=== PATIENT | female | born 1950 | race Caucasian/White ===

== ENCOUNTER 2017-01-02 18:15 | Outpatient (CLI) | payer MEDICARE, MEDICAID ==
[2017-01-02 19:16] LABS: #Lymphocytes 2.1 thou/uL (1.20-3.40); #Monocytes 0.6 thou/uL (0.11-0.59); #Neutrophils 4.8 thou/uL (1.40-6.50); %Basophils 0.7 % (0.0-1.0); %Lymphocytes 27.5 % (21.0-51.0); %Monocytes 8.1 % (0.0-10.0); Mean Platelet Volume 5.9 fL (7.4-10.4); White Blood Cell (WBC) Count 7.6 thou/uL (4.8-10.8)
[2017-01-02 19:19] LABS: PTT 28.1 SEC (22.9-36.1); Prothrombin Time 13.2 SEC (12.0-14.7)
[2017-01-02 19:22] LABS: ALT (SGPT) 21 U/L (0-55); AST (SGOT) 20 U/L (5-34); Alkaline Phosphatase 92 U/L (40-150); Anion Gap 14 mmol/L (10-20); BUN (Urea Nitrogen) 17 mg/dL (9.8-20.1); Bilirubin, Direct 0.2 mg/dL (0.1-0.3); Bilirubin, Total 0.4 mg/dL (0.2-1.2); Calc. Creatinine Clearance 0 mL/min (70-130); Calcium 9.7 mg/dL (7.8-10.44); Carbon Dioxide 29 mmol/L (23-31); Chloride 99 mmol/L (98-107); Estimated GFR-MDRD 54; Protein, Total 7.5 g/dL (5.8-8.1)
== END 2017-01-02 18:16 | disposition home or self-care (01) ==
LOC: NAV LAB 18:15
PROVIDERS: ATTEND Internal Medicine
DX: C22.0 Liver cell carcinoma (principal)
CPT/HCPCS: 80048; 80076; 85025; 85610; 85730

== ENCOUNTER 2017-02-03 11:37 | Emergency (ER) | payer MEDICARE, MEDICAID ==
[~2017-02-03 11:37] MED LIST: Iopamidol 370 76% 100 ML VIAL ONE
[2017-02-03] MEDS ORDERED: Sodium Chloride 0.9% 0 ML ONE (12:18)
[2017-02-03] MEDS ORDERED: Sodium Chloride 0.9% 1,000 ML ONE (12:18)
[2017-02-03 12:34] LABS: #Lymphocytes 0.6 thou/uL (1.20-3.40); #Monocytes 0.4 thou/uL (0.11-0.59); #Neutrophils 13.3 thou/uL (1.40-6.50); %Basophils 0.2 % (0.0-1.0); %Lymphocytes 4.2 % (21.0-51.0); %Monocytes 2.7 % (0.0-10.0); %Neutrophils 92.9 % (42.0-75.0); Mean Corpuscular HGB CONC 32.3 g/dL (32.0-36.0); Mean Corpuscular Hemoglobin 26.6 pg (27.0-31.0); Mean Corpuscular Volume 82.4 fl (81.0-99.0); Mean Platelet Volume 5.3 fL (7.4-10.4); Platelet Count 473 thou/uL (130-400); RBC Distribution Width 13.1 % (11.5-14.5); Red Blood Cell (RBC) Count 5.27 mill/uL (4.20-5.40); White Blood Cell (WBC) Count 14.3 thou/uL (4.8-10.8)
[2017-02-03 13:01] LABS: ALT (SGPT) 73 U/L (0-55); AST (SGOT) 96 U/L (5-34); Albumin 3.8 g/dL (3.4-4.8); Alkaline Phosphatase 102 U/L (40-150); Anion Gap 22 mmol/L (10-20); BUN (Urea Nitrogen) 27 mg/dL (9.8-20.1); Bilirubin, Total 0.5 mg/dL (0.2-1.2); Calc. Creatinine Clearance 0 mL/min (70-130); Calcium 9.7 mg/dL (7.8-10.44); Carbon Dioxide 20 mmol/L (23-31); Chloride 99 mmol/L (98-107); Estimated GFR-MDRD 31; Globulin 3.7 g/dL (2.4-3.5); Glucose 197 mg/dL (80-115); Potassium 4.9 mmol/L (3.5-5.1); Protein, Total 7.5 g/dL (5.8-8.1); Sodium 136 mmol/L (136-145)
[2017-02-03 13:02] LABS: INR-International Normal Ratio 1.1; PTT 29.5 SEC (22.9-36.1)
[2017-02-03] MEDS ORDERED: cefTRIAXone\\ROCEPHIN 1 GM VIAL ONE (14:13)
[2017-02-03] MEDS ORDERED: Sodium Chloride 0.9% 100 ML ONE (14:13)
--- NOTE | 2017-02-03 16:07 | CT ---
CT OF ABDOMEN AND PELVIS PERFORMED WITH INTRAVENOUS CONTRAST ENHANCEMENT: Comparison: Most recent prior exam, 09-12-07. History: Abdominal pain, rectal bleeding since last night. History of a chemotherapy injection in liver performed in [facility]. FINDINGS: The lung bases are clear of infiltrates or pulmonary nodules. Small hiatal hernia is present. There is a hypertrophied appearance to the left lobe of the liver. Within the right lobe there is a well circumscribed low attenuation mass measuring 4.5 cm in size. It has air interspersed within i t. The lesion is somewhat hyperdense but not definitely a fluid density lesion. It may be related to patient's treatment. Mainly peripheral to this in a somewhat geographic distribution without obv ious disruption of the vascular structures is a hyperdense area occupying a large part of the right lobe of the liver. This is not typical appearance for a mass. It may be on the basis of the patien t's treatment. It could indicate ischemic areas of the liver. It would be very helpful to obtained the comparison examination wherever they are available. The spleen and pancreas regions are unrema rkable. The gallbladder is mildly distended. Right and left adrenal glands and right and left kidneys are normal in size. There is a large wide mouth ventral hernia present. No obstruction associated with this. No significant left periaortic adenopathy. There is a mildly enlarged aortocaval node that measures 12 mm in short axis dimension. There are some small portahepatis nodes present. CT OF PELVIS PERFORMED WITH CONTRAST ENHANCEMENT: No adenopathy, mass or free fluid. The colon is not distended. I do not see any signs of bowel wal l distention considering the under distention. There are arthritic changes of the spine. There are also marked arthritic changes of the right hip. IMPRESSION: 1. 4.5 cm hyperdense mass with internal air seen within the right lobe of the liver. This is centr al to a large area of hyperdensity within the right lobe which is in more a geographic type distribu tion. It is not a typical appearance for a mass. It does not appear to displace the vessels. I jose spect that this may represent areas of the liver which are showing hypoperfusion or ischemic or even possibly infarct, possibly related to this central mass. Air density within the mass could be on t he basis of whatever treatment the patient received. Obviously a developing abscess cannot be exclu ded given the presence of air. Correlation with the recent CT examination is recommended. 2. Small nodes in the portahepatis and pancreatic head and aortocaval regions which would be suspic ious for neoplastic involvement. 3. Large ventral hernia. 4. Small hiatal hernia. POS: MARIO
== END 2017-02-03 15:01 | disposition home or self-care (01) ==
LOC: NAV ERS 11:37
DX: K57.92 Diverticulitis of intestine, part unspecified, without perforation or abscess without bleeding (principal); K62.5 Hemorrhage of anus and rectum; C22.8 Malignant neoplasm of liver, primary, unspecified as to type; I10 Essential (primary) hypertension; J44.9 Chronic obstructive pulmonary disease, unspecified; E78.5 Hyperlipidemia, unspecified; F32.9 Major depressive disorder, single episode, unspecified; Z87.891 Personal history of nicotine dependence; Z79.891 Long term (current) use of opiate analgesic; Z79.899 Other long term (current) drug therapy
CPT/HCPCS: 74177; 80053; 85025; 85610; 85730; 94760; 96361; 96365; J0696; J7050

== ENCOUNTER 2017-07-22 09:28 | Outpatient (CLI) | payer MEDICARE, MEDICAID ==
[2017-07-22 10:04] LABS: ALT (SGPT) 15 U/L (8-55); AST (SGOT) 18 U/L (5-34); Albumin 3.8 g/dL (3.4-4.8); Alkaline Phosphatase 130 U/L (40-150); Anion Gap 13 mmol/L (10-20); BUN (Urea Nitrogen) 13 mg/dL (9.8-20.1); Bilirubin, Total 0.3 mg/dL (0.2-1.2); Calc. Creatinine Clearance 0 mL/min (70-130); Carbon Dioxide 26 mmol/L (23-31); Chloride 107 mmol/L (98-107); Estimated GFR-MDRD 64; Globulin 3.5 g/dL (2.4-3.5); Glucose 119 mg/dL (80-115); Protein, Total 7.3 g/dL (6.0-8.3); Sodium 141 mmol/L (136-145)
[2017-07-22 10:30] LABS: #Lymphocytes 1.9 thou/uL (1.20-3.40); #Monocytes 0.6 thou/uL (0.11-0.59); #Neutrophils 5.1 thou/uL (1.40-6.50); %Basophils 0.5 % (0.0-1.0); %Eosinophils 0.1 % (0.0-10.0); %Lymphocytes 25.2 % (21.0-51.0); %Neutrophils 66.2 % (42.0-75.0); Mean Corpuscular HGB CONC 30.4 g/dL (32.0-36.0); Mean Corpuscular Hemoglobin 23.7 pg (27.0-31.0); Mean Corpuscular Volume 77.8 fl (81.0-99.0); Mean Platelet Volume 6.1 fL (7.4-10.4); Platelet Count 280 thou/uL (130-400); Red Blood Cell (RBC) Count 5.91 mill/uL (4.20-5.40); White Blood Cell (WBC) Count 7.7 thou/uL (4.8-10.8)
[2017-07-22 10:52] LABS: Follow-up Chemistry Comp? YES; Follow-up Hematology Comp? YES; Follow-up Result - Chemistry REPORT FAXED; Follow-up Result - Hematology REPORT FAXED
== END 2017-07-22 09:29 | disposition home or self-care (01) ==
LOC: NAV LAB 09:28
PROVIDERS: ATTEND Internal Medicine
DX: K72.91 Hepatic failure, unspecified with coma (principal); K75.0 Abscess of liver
CPT/HCPCS: 36415; 80053; 82140; 85025

== ENCOUNTER 2017-11-28 15:43 | Outpatient (CLI) | payer MEDICARE, MEDICAID ==
--- NOTE | 2017-11-28 16:21 | ULT ---
ULTRASOUND WITH DOPPLER DUPLEX VENOUS LOWER EXTREMITY LEFT: HISTORY: A 67-year-old female with left lower extremity edema. TECHNIQUE: Color flow Doppler, spectral waveform analysis of pulsed Doppler, and delvalle-scale imaging with xena trina and augmentation, were used to evaluate the left common femoral, femoral, popliteal, posterior t ibial, and superficial femoral, veins; and the proximal portions of the profunda femoral and greater saphenous, veins. FINDINGS: There is normal compressibility, demonstration of blood flow by color Doppler and pulsed Doppler, and response to augmentation, in all interrogated veins. IMPRESSION: Negative. No deep vein thrombosis in the left lower extremity. jn[] POS: JOSUE
== END 2017-11-28 15:44 | disposition home or self-care (01) ==
LOC: NAV ULT 15:43
PROVIDERS: ATTEND Family Medicine
DX: R60.0 Localized edema (principal)

== ENCOUNTER 2019-11-13 08:38 | Outpatient (CLI) | payer MEDICARE, MEDICAID ==
[2019-11-13] MEDS ORDERED: Iopamidol 370 76% 100 ML VIAL ONE (09:00)
--- NOTE | 2019-11-13 10:17 | CT ---
ABDOMEN CT WITH AND WITHOUT CONTRAST PELVIC CT WITH AND WITHOUT CONTRAST: HISTORY: Liver mass. History of cancer. COMPARISON: 06/23/2019, 05/05/2019, 01/05/2019. FINDINGS: ABDOMEN CT: Chronic changes in the lung bases. Calcified granuloma in the right lower lobe. Small hiatal hernia. Visualized aorta demonstrates atherosclerosis. No aneurysm or periaortic fat stranding. The spleen, pancreas and adrenal glands have appropriate enhancement and attenuation. Noncontrast images of the liver demonstrate appropriate attenuation. On the arterial phase images, th ere is a hypodense focus in the right hepatic lobe. On the portal venous phase, this focus has slight isodense attenuation. On the 10 minute delayed images, this focus is isodense with respect to the hepatic parenchyma. Measurements determined on the venous phase suggest that this right hepatic lobe lesion measures 1.7 cm anterior posterior by 4.1 cm mediolateral by 1.8 cm craniocaudal. Previou sly, this lesion measured 2.9 x 4.9 x 1.8 cm. The portal venous phase demonstrates small areas of subcentimeter enhancement in the left hepatic lobe and right hepatic lobe, predominantly peripheral i n location. Differential considerations include flash filling hemangiomas versus small enhancing lesions. The lesion in the left hepatic lobe measures 0.6 x 0.5 cm. There are 2 lesions in the right hepatic lobe that measure 0.6 x 0.5 cm and 0.6 x 0.5 cm. When using the previous examinations, these lesions are not definitively appreciated. However, other lesions on the prior exam are not appr eciated on the current exam. As stated above, these findings may represent small flash filling hemangiomas. Small metastatic deposits, hypervascular in nature, cannot be entirely excluded. These l esions are isodense on the delayed images. Symmetric enhancement of the kidneys. No obstructive uropathy. Symmetric excretion into decompressed intrarenal and extrarenal collecting system. Redemonstration of a large anterior abdominal wall hernia containing fat and small bowel loops. The d efect is 10 cm in the mediolateral orientation. There is no evidence of associated bowel obstruction. Unremarkable ileocecal junction and appendix. Scattered fecal material in a nondistended , nondilated colon. CT PELVIS: No mass, lymphadenopathy, free air or free fluid. Unremarkable urinary bladder. Surgically absent tetlin mayra. Osseous structures: No lytic or blastic lesions. IMPRESSION: 1. Interval decrease in size of a hypodense mass in the right hepatic lobe. 2. There are subcentimeter enhancing foci in the liver which may represent flash filling hemangiomas versus enhancing metastatic deposits. These deposits are not appreciated on the previous examination. Areas of enhancement noted on the examination from June 2019 are less evident on the c urrent exam. 3. Stable ventral abdominal hernia. No associated bowel obstruction. 4. The overall degree of omental seeding continues to decrease. No significant omental metastatic dis ease/tumor burden is currently appreciated. Transcribed Date/Time: 11/13/2019 10:49 AM
== END 2019-11-13 08:39 | disposition home or self-care (01) ==
LOC: NAV CT 08:38
PROVIDERS: ATTEND Internal Medicine Hematology & Oncology
DX: C22.7 Other specified carcinomas of liver (principal); C56.1 Malignant neoplasm of right ovary; K46.9 Unspecified abdominal hernia without obstruction or gangrene; K43.9 Ventral hernia without obstruction or gangrene; R16.0 Hepatomegaly, not elsewhere classified
CPT/HCPCS: 36415; 74178; 82565

== ENCOUNTER 2020-02-09 12:30 | Emergency (ER) | payer MEDICARE, MEDICAID ==
[2020-02-09 13:35] LABS: #Lymphocytes 1.1 thou/uL (1.20-3.40); #Monocytes 0.4 thou/uL (0.11-0.59); #Neutrophils 8.9 thou/uL (1.40-6.50); %Basophils 0.5 % (0.0-1.0); %Lymphocytes 10.5 % (21.0-51.0); %Neutrophils 85.1 % (42.0-75.0); Hemoglobin 14.1 g/dL (12.0-16.0); Mean Corpuscular HGB CONC 31.9 g/dL (32.0-36.0); Mean Corpuscular Hemoglobin 29.7 pg (27.0-31.0); Mean Corpuscular Volume 92.9 fL (78.0-98.0); Mean Platelet Volume 7.3 fL (7.4-10.4); Platelet Count 390 thou/uL (130-400); RBC Distribution Width 14.4 % (11.5-14.5); Red Blood Cell (RBC) Count 4.74 mill/uL (4.20-5.40); White Blood Cell (WBC) Count 10.4 thou/uL (4.8-10.8)
--- NOTE | 2020-02-09 13:38 | RAD ---
Exam: Chest one view HISTORY:Cough. Fever. Comparison: 04/01/2019 FINDINGS: Cardiac silhouette: Normal Aorta: Atherosclerosis Pulmonary vessels: Normal Costophrenic angles: Clear LUNGS: Diffuse interstitial opacities. Pneumothorax: None Osseous abnormalities: None IMPRESSION: 1. Atherosclerosis 2. Diffuse interstitial opacities. Correlate for edema versus viral infiltrate.
[2020-02-09 13:49] LABS: ALT (SGPT) 74 U/L (8-55); AST (SGOT) 148 U/L (5-34); Albumin 3.6 g/dL (3.4-4.8); Alkaline Phosphatase 381 U/L (40-110); Anion Gap 16 mmol/L (10-20); BUN (Urea Nitrogen) 15 mg/dL (9.8-20.1); Bilirubin, Total 2.3 mg/dL (0.2-1.2); Calc. Creatinine Clearance 0 mL/min (70-130); Calcium 9.2 mg/dL (7.8-10.44); Carbon Dioxide 21 mmol/L (23-31); Chloride 103 mmol/L (98-107); Estimated GFR-MDRD 59; Globulin 4.1 g/dL (2.4-3.5); Glucose 133 mg/dL (83-110); Magnesium 1.9 mg/dL (1.6-2.6); Potassium 4.1 mmol/L (3.5-5.1); Protein, Total 7.7 g/dL (6.0-8.3); Sodium 136 mmol/L (136-145)
[2020-02-09] MEDS ORDERED: Sodium Chloride 0.9% 2,000 ML ONE (14:01)
[2020-02-09] MEDS ORDERED: Cefepime 2 GM VIAL ONE (14:02)
[2020-02-09] MEDS ORDERED: Acetaminophen 325 MG TAB ONE (14:02)
[2020-02-09] MEDS ORDERED: Sodium Chloride 0.9% 100 ML ONE (14:03)
[2020-02-09 14:31] LABS: Bilirubin Moderate (Negative); Blood, Urine Negative (Negative); Clarity Slightly Cloudy (Clear); Glucose, Urine (Dipstick) Negative (Negative); Leukocyte Negative (Negative); Nitrite Negative (Negative); Protein, Urine (Dipstick) Negative (Neg-Trace); Urobilinogen > or = 8.0 mg/dL (Less than 2)
[2020-02-09] MEDS ORDERED: Sodium Chloride 0.9% 500 ML ONE (14:54)
== END 2020-02-09 15:50 | disposition short-term general hospital (02) ==
LOC: NAV ERS 12:30
DX: A41.9 Sepsis, unspecified organism (principal); R91.8 Other nonspecific abnormal finding of lung field; M79.7 Fibromyalgia; E78.5 Hyperlipidemia, unspecified; I10 Essential (primary) hypertension; J44.9 Chronic obstructive pulmonary disease, unspecified; F32.9 Major depressive disorder, single episode, unspecified; Z87.891 Personal history of nicotine dependence; Z79.51 Long term (current) use of inhaled steroids; Z79.01 Long term (current) use of anticoagulants; Z79.899 Other long term (current) drug therapy
CPT/HCPCS: 36415; 71045; 80053; 81003; 83605; 83735; 83880; 84484; 85025; 87040; 87081; 87149; 87430; 87804; 93005; 94760; 96361; 96365; 96367; J0692; J3370; J3490; J7050

== ENCOUNTER 2020-04-21 08:36 | Outpatient (CLI) | payer MEDICARE, MEDICAID ==
[2020-04-21] MEDS ORDERED: Iopamidol 370 76% 100 ML VIAL ONE (09:00)
--- NOTE | 2020-04-21 11:57 | CT ---
CT ABDOMEN WITH AND WITHOUT IV CONTRAST AND CT PELVIS WITH IV CONTRAST CLINICAL INFORMATION: Follow-up hepatic lesion. COMPARISON: 11/13/2019 Technique: Multiple contiguous axial CT images are obtained through the abdomen and pelvis with IV contrast. Cor onal reformatted images are provided. FINDINGS: Lower Chest: Linear densities are again seen at the lateral aspect right lung base likely related to areas of mild scarring. Calcified granuloma is present at the right lung base. No discrete calcified pulmonary nodule is seen. Vessels: Vascular calcifications are seen in the abdominal aorta and iliac arteries. There are severa l serpiginous vessels seen in the region of the gastrohepatic ligament and adjacent to the esophagus most compatible with varices suggesting portal hypertension. Abdomen: Portal vein:Measures 16 mm in diameter which is mildly dilated. Gallbladder: Not visualized and likely surgically absent. There has been interval development of mode rate degree of intra and extrahepatic biliary ductal dilatation with increased density seen in the distal common duct measuring 1.5 cm which may represent choledocholithiasis. A mass lesion could not be entirely excluded. There is also evidence of pancreatic ductal dilatation. Liver: There is hypertrophy of the lateral segment left hepatic lobe, and the right hepatic lobe is s mall in size. This is a stable finding. The hypodense lesion on precontrast imaging within the posterior segment right hepatic lobe is again seen measuring 3 cm x 2.8 cm with previous measurement of 4.1 cm x 1.8 cm. This lesion demonstrates decreased attenuation on precontrast and arterial phase of imaging with slightly heterogeneous enhancement on portal venous phase imaging and is essent ially isodense to the adjacent hepatic parenchyma on delayed phase of imaging. This lesion has not significantly changed compared to prior study. Additional subtle enhancing lesions along the peripher al margin of the liver in the right hepatic lobe measuring less then 1 cm are less well delineated but do appear to persist. There is also suggestion of a subtle area of enhancement measuring 1 cm in the more lateral aspect lateral segment left hepatic lobe which is only seen on arterial phase of imaging. Spleen: Calcified granuloma. Pancreas: Pancreatic ductal dilatation is described above. Pancreas otherwise has a normal CT appeara nce. Adrenals: within normal limits. Kidneys: within normal limits. Bowel: Colonic diverticulosis. Loops small bowel are normal in caliber. There is suggestion of mild w all thickening in the region of the GE junction. This could be related to incomplete distention, but this be better evaluated with endoscopy Appendix: The appendix is visualized and normal in caliber. Peritoneum: No ascites or free air; no fluid collection. Mesentery and Retroperitoneum: There is a mildly enlarged aortocaval lymph node seen measuring 1.3 cm in short axis dimension. This does measure larger in size compared to prior study where this lymph node measured approximately 0.9 cm. There are mildly enlarged gastrohepatic ligament lymph nodes whic h were not seen on the prior study. Largest lymph node in this region measures 1.1 cm in short axis dimension. There is a stable low-density structure in a left periaortic location with central calcifi cation measuring 1.5 cm x 1.1 cm. This is stable compared to study on 02/03/2017. Abdominal Wall: Large ventral abdominal wall hernia is seen in the lower abdomen/upper pelvis with mu ltiple loops of small bowel extending into the defect. The defect measures 10.4 cm in transverse dimensions. There is a small ventral abdominal wall hernia just superior to this region to the right of midline containing a loop of small bowel. This defect measures approximately 4 cm in transverse dimension. Pelvis: Reproductive Organs: Uterus is not visualized likely surgically absent. Pelvis within normal limits. Bladder: within normal limits. Bones: Multilevel degenerative changes are seen throughout the lumbar spine with left convex scoliosi s thoracolumbar spine. Bilateral hip osteoarthritis is present greater on the right. IMPRESSION: 1. Interval development of intra and extrahepatic biliary ductal dilatation with increased density ro unded focus in the most distal common duct the level of the pancreatic head which may represent choledocholithiasis. A mass in this region would be difficult to entirely exclude. ERCP is recommende d for further evaluation. 2. Suggestion of mild wall thickening in the region of the GE junction. This overall nonspecific and may be related to the degree of distention. However, endoscopy would be helpful for further evaluation. 3. Enlargement the left hepatic lobe with smaller size of the right hepatic lobe. This is an overall stable finding. There are gastrohepatic and esophageal varices present suggesting portal hypertension. 4. Overall stable lesion/mass in the posterior segment right hepatic lobe. Additional much smaller ar eas of subtle arterial enhancement noted on the prior exam are less well delineated on today's study, but these areas are likely again present. 5. Interval development of mildly enlarged aortocaval lymph node as well as enlarged lymph nodes in t he region of the gastrohepatic ligament. 6. Ventral abdominal wall hernias as described above. 7. Above findings were discussed with CATHY Calix on 04/21/2020 at approximately 1052 hours.
== END 2020-04-21 08:37 | disposition home or self-care (01) ==
LOC: NAV CT 08:36
PROVIDERS: ATTEND Physician Assistant Medical
DX: C22.0 Liver cell carcinoma (principal); K43.9 Ventral hernia without obstruction or gangrene; R59.0 Localized enlarged lymph nodes; I85.00 Esophageal varices without bleeding; I86.4 Gastric varices; K83.8 Other specified diseases of biliary tract; R16.0 Hepatomegaly, not elsewhere classified
CPT/HCPCS: 36415; 74170; 82565; Q9967

== ENCOUNTER 2020-11-03 09:07 | Outpatient (CLI) | payer MEDICARE, MEDICAID ==
--- NOTE | 2020-11-03 11:04 | CT ---
CT ABDOMEN AND PELVIS WITH CONTRAST: HISTORY: Hepatocellular carcinoma. COMPARISON: CT abdomen and pelvis with and without contrast 04/21/2020. FINDINGS: Lung bases are clear. No pericardial effusion. The aortic contour is nonaneurysmal. Similar appearance of the small bowel and sigmoid colon containing large ventral hernia infraumbilica l. No evidence of bowel obstruction. The appendix is visualized and is normal. The previously described intrahepatic biliary dilatation has resolved. Small volume gas within the i ntrahepatic and extrahepatic biliary system. Pancreas is unremarkable. Post treatment change along the right lobe of the liver is similar. No ne w solid foci of enhancement within the liver. A few splenic granulomas. Adrenal glands unremarkable. No hydronephrosis. No abnormal enhancing ma ss. No peritoneal carcinomatosis. No acute osseous abnormality. No suspicious osteolytic or osteoblasti c lesions. IMPRESSION: 1. Resolved intrahepatic and extrahepatic biliary dilatation, likely sphincterotomy for which there is now intrahepatic and extrahepatic biliary gas. 2. Similar post treatment change peripheral aspect right lobe of the liver without new solid enhanci ng mass. 3. No acute inflammatory process of abdomen or pelvis. 4. Unchanged infraumbilical small and large bowel containing large ventral hernia. No evidence for obstruction. 5. No acute inflammatory process. 6. Similar appearance of the supraumbilical large bowel containing hernia. POS: [facility]
== END 2020-11-03 09:08 | disposition home or self-care (01) ==
LOC: NAV CT 09:07
PROVIDERS: ATTEND Internal Medicine Gastroenterology
DX: C22.0 Liver cell carcinoma (principal); K80.50 Calculus of bile duct without cholangitis or cholecystitis without obstruction; K43.9 Ventral hernia without obstruction or gangrene; K42.9 Umbilical hernia without obstruction or gangrene
CPT/HCPCS: 74177; Q9967

== ENCOUNTER 2024-06-13 12:37 | Emergency (ER) | payer OTHER, SELFPAY ==
[2024-06-13] MEDS ORDERED: HYDROcodone/Acetaminophen 10/325 mg Tablet ONE (13:05)
[2024-06-13 13:11] LABS: #Lymphocytes 1.1 thou/uL (1.20-3.40); #Monocytes 0.4 thou/uL (0.11-0.59); #Neutrophils 3.9 thou/uL (1.40-6.50); %Basophils 0.6 % (0.0-1.0); %Lymphocytes 20.1 % (21.0-51.0); %Neutrophils 71.3 % (42.0-75.0); Hematocrit 48.1 % (36.0-47.0); Hemoglobin 15.1 g/dL (12.0-16.0); Mean Corpuscular HGB CONC 31.4 g/dL (32.0-36.0); Mean Corpuscular Hemoglobin 28.7 pg (27.0-31.0); Mean Corpuscular Volume 91.6 fl (78.0-98.0); Mean Platelet Volume 7.3 fL (7.4-10.4); Platelet Count 214 10x3/uL (130-400); RBC Distribution Width 14.9 % (11.5-14.5); Red Blood Cell (RBC) Count 5.25 mill/uL (4.20-5.40); White Blood Cell (WBC) Count 5.4 10x3/uL (4.8-10.8)
[2024-06-13 13:33] LABS: Troponin I 0.017 ng/mL (< 0.028)
[2024-06-13 13:34] LABS: ALT (SGPT) 17 U/L (8-55); AST (SGOT) 25 U/L (5-34); Albumin 3.5 g/dL (3.4-4.8); Alkaline Phosphatase 104 U/L (40-110); Anion Gap 15 mmol/L (10-20); BUN (Urea Nitrogen) 11 mg/dL (9.8-20.1); Bilirubin, Total 0.5 mg/dL (0.2-1.2); Calc. Creatinine Clearance 0 mL/min (70-130); Calcium 9.7 mg/dL (7.8-10.44); Carbon Dioxide 24 mmol/L (23-31); Chloride 102 mmol/L (98-107); Estimated GFR 74; Globulin 3.6 g/dL (2.4-3.5); Glucose 121 mg/dL (83-110); Lipase 21 U/L (8-78); Potassium 3.5 mmol/L (3.5-5.1); Protein, Total 7.1 g/dL (5.8-8.1); Sodium 137 mmol/L (136-145)
== END 2024-06-13 14:41 | disposition home or self-care (01) ==
LOC: NAV ERS 12:37
DX: S20.213A Contusion of bilateral front wall of thorax, initial encounter (principal); S40.811A Abrasion of right upper arm, initial encounter; I10 Essential (primary) hypertension; J44.9 Chronic obstructive pulmonary disease, unspecified; F17.210 Nicotine dependence, cigarettes, uncomplicated; E78.5 Hyperlipidemia, unspecified; Z79.899 Other long term (current) drug therapy; W18.30XA Fall on same level, unspecified, initial encounter
CPT/HCPCS: 71111; 80053; 83690; 84484; 85025; 93005; 94760